=== PATIENT | male | born 1970 | race Caucasian/White ===

== ENCOUNTER → 2020-11-29 | Outpatient (CLI) | payer OTHER, BC ==
[~2020-11-29] MED LIST: ASPIR-LOW81 MG PO; FISH OIL CONC1000 MG PO; NIACIN 250250 MG/CAP PO; NO HOME MEDICATIONS; PERCOCET 325 MG1 TA2 PO; PRILOSEC10 MG PO
== END ==
LOC: COL.RAD 12:43
DX: J90 Pleural effusion, not elsewhere classified (principal)
CPT/HCPCS: 19804

== ENCOUNTER → 2020-12-05 | Outpatient (CLI) | payer OTHER, BC | LOC: COL.RAD 10:21 | DX: J90 Pleural effusion, not elsewhere classified (principal); Z87.81 Personal history of (healed) traumatic fracture | CPT/HCPCS: 19804 ==

== ENCOUNTER → 2021-02-04 | Outpatient (CLI) | payer BC | LOC: COL.RAD 07:00 | DX: M89.38 Hypertrophy of bone, other site (principal); R29.898 Other symptoms and signs involving the musculoskeletal system; R20.0 Anesthesia of skin ==

== ENCOUNTER → 2021-07-21 | Outpatient (CLI) | payer BC | LOC: COL.RAD 14:00 | DX: M25.511 Pain in right shoulder (principal); M25.512 Pain in left shoulder; G89.29 Other chronic pain | CPT/HCPCS: J3301; Q9967 ==